=== PATIENT | female | born 1985 | race Hispanic/Latino ===

== ENCOUNTER 2022-01-23 18:54 | Emergency (ER) | payer MEDICAID ==
[2022-01-23 21:16] LABS: Bilirubin Negative (Negative); Blood, Urine Negative (Negative); Clarity Clear (Clear); Glucose, Urine (Dipstick) 50 mg/dL (Negative); Ketone, Urine Negative (Negative); Leukocyte Negative Leu/uL (Negative); Nitrite Negative (Negative); Protein, Urine (Dipstick) Negative (Neg-Trace); Specific Gravity, Urine 1.006 (1.002-1.036); Urobilinogen Normal mg/dL (Less than 2)
== END 2022-01-23 22:03 | disposition home or self-care (01) ==
LOC: ERS 18:54
DX: B34.9 Viral infection, unspecified (principal)
CPT/HCPCS: 81003; 87081; 87430; 87804; 99283